=== PATIENT | male | born 1970 | race Caucasian/White ===

== ENCOUNTER 2023-05-13 15:06 | Outpatient (AMB) | payer MEDICARE, MEDICAID, SELFPAY ==
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
[2023-05-13 15:26] VITALS: BP 142/88; PULSE 83; O2SAT 97; BMI 64.7
== END 2023-05-14 15:07 | disposition home or self-care (01) ==
PROVIDERS: PCP Family Medicine; Visit Provider Family Medicine
DX: R03.0 Elevated blood-pressure reading, without diagnosis of hypertension (principal); I83.009 Varicose veins of unspecified lower extremity with ulcer of unspecified site; L97.909 Non-pressure chronic ulcer of unspecified part of unspecified lower leg with unspecified severity; E66.01 Morbid (severe) obesity due to excess calories; Z68.44 Body mass index [BMI] 60.0-69.9, adult; F32.A Depression, unspecified; F63.81 Intermittent explosive disorder; Z86.718 Personal history of other venous thrombosis and embolism; J45.909 Unspecified asthma, uncomplicated; G47.30 Sleep apnea, unspecified; G62.9 Polyneuropathy, unspecified
CPT/HCPCS: 96127; 99204

== ENCOUNTER 2023-06-30 13:41 | Outpatient (AMB) | payer MEDICARE, MEDICAID, SELFPAY ==
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
[2023-06-30 13:45] VITALS: BP 138/80; PULSE 88; RESP 14; O2SAT 98; BMI 64.2
== END 2023-06-30 15:09 | disposition home or self-care (01) ==
PROVIDERS: PCP Family Medicine; Visit Provider Family Medicine
DX: M54.9 Dorsalgia, unspecified (principal); M79.606 Pain in leg, unspecified; F11.20 Opioid dependence, uncomplicated; R60.0 Localized edema; T14.8XXA Other injury of unspecified body region, initial encounter
CPT/HCPCS: 99214

== ENCOUNTER 2024-04-25 15:02 | Outpatient (AMB) | payer MEDICARE, MEDICAID, SELFPAY ==
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
[2024-04-25 15:11] VITALS: BP 146/80; PULSE 88; BMI 67.6
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
--- OUTSIDE RECORDS SUMMARY | 2024-04-25 16:35 | XMS_ITS | Clinical Summary ---
Author Organization [address] [place] [address] [place] [id number] Phone Care Team Providers Care Physician Office Rep Name Role Phone Berta Villalba MD Primary Care Provider [phone] Allergies Active Allergy Reactions Criticality Noted Date Comments Ciprofloxacin Hcl 01/14/2012 Doxycycline Calcium 01/14/2012 Gabapentin Swelling 07/30/2023 Fever Oxcarbazepine 01/14/2012 Prednisone 01/14/2012 Fd&C Yellow #6 [place]-Prednisone Soybean Oil 01/14/2012 Medications Medication Sig Dispensed Refills Start Date End Date Status albuterol HFA (PROAIR HFA ; PROVENTIL HFA ; VENTOLIN HFA) 90 mcg/actuation inhaler Inhale 2 Puffs into the lungs every 4 hours as needed for Cough or Wheezing. 08/12/2023 Active amLODIPine (NORVASC) 5 mg tablet Take 1 tablet (5 mg total) by mouth 1 (one) time each day. 08/28/2023 Active atorvastatin (LIPITOR) 10 mg tablet Take 1 tablet (10 mg total) by mouth 1 (one) time each day. 08/28/2023 Active budesonide-formoter oL (SYMBICORT) 160-4.5 mcg/actuation inhaler Inhale 2 Puffs into the lungs 2 times daily. 09/02/2023 09/26/2024 Active clotrimazole (LOTRIMIN) 1 % cream Apply 1 g topically 2 times daily. 07/31/2023 Active DULoxetine (CYMBALTA) [address] capsule Take 1 capsule (20 mg total) by mouth 1 (one) time each day. 07/31/2023 Active FLUoxetine (PROzac) 10 mg capsule Take 1 capsule (10 mg total) by mouth 1 (one) time each day. 01/22/2024 Active FLUoxetine (PROzac) 20 mg capsule Take 1 capsule (20 mg total) by mouth 1 (one) time each day. 07/30/2023 Active fluticasone propion-salmeteroL (ADVAIR HFA) 115-21 mcg/actuation inhaler Inhale 2 Puffs into the lungs 2 times daily for 360 days. 09/02/2023 2024 Active furosemide (LASIX) 20 mg tablet Take 1 tablet (20 mg total) by mouth 1 (one) time each day. 07/31/2023 Active lamoTRIgine (LaMICtal) 100 mg tablet Take 1 tablet (100 mg total) by mouth 1 (one) time each day. 07/31/2023 Active loratadine 10 mg capsule Take 1 Capsule by mouth daily as needed (allergies). 07/31/2023 Active mometasone-formoter ol (Dulera) 100-5 mcg/actuation inhaler Inhale 2 Puffs into the lungs 2 times daily. 09/02/2023 Active omeprazole (PriLOSEC) [address] capsule Take 1 capsule (20 mg total) by mouth 1 (one) time each day. 07/31/2023 Active pregabalin (LYRICA) 200 mg capsule Take 1 capsule (200 mg total) by mouth 2 (two) times a day. Max Daily Amount: 400 mg 07/31/2023 Active oxyCODONE (ROXICODONE) 10 mg immediate release tablet Take 1 tablet (10 mg total) by mouth 2 (two) times a day. Max Daily Amount: 20 mg 10 tablet 02/25/2024 Active morphine (MSIR) 15 mg tablet Take 1 tablet (15 mg total) by mouth 2 (two) times a day. Max Daily Amount: 30 mg 20 tablet 02/25/2024 Active clonazePAM (KlonoPIN) 0.5 mg tablet Take 1 tablet (0.5 mg total) by mouth 2 (two) times a day for 14 days. Max Daily Amount: 1 mg 28 tablet 02/25/2024 Active oxyCODONE (ROXICODONE) 10 mg immediate release tablet Take 1 tablet (10 mg total) by mouth 2 (two) times a day. Max Daily Amount: 20 mg 10 tablet 02/25/2024 Active Active Problems Problem Noted Date Diagnosed Date Asthma 01/14/2012 Hyperlipidemia with target LDL less than 130 Overview (02/19/2024): IMO update Myocarditis 01/14/2012 Obesity 01/14/2012 Psychiatric disorder 01/14/2012 Encounters Date Type Department Care Team Description 02/18/2024 [facility] - [address] [place] [address] Ariana Morin MD Medication Problem (Oxycodone) from Last 3 Months Medical History Medical History Date Comments Historical Medical DX 01/14/2012 DX:Hyperli pidemia LDL goal < 130 Obesity 01/14/2012 DX:Obesity Psychiatric disorder 01/14/2012 DX:Psychiat son disorder Asthma 01/14/2012 DX:Asthma Myocarditis (CMS/HCC) 01/14/2012 DX:Myocard itis ([facility]) Social History Tobacco Use Types Packs/Day Years Used Date Smoking Tobacco: Never Smokeless Tobacco: Never Alcohol Use Standard Drinks/Week Comments Never 0 (1 standard drink = 0.6 oz pur e alcohol) Sex and Gender Information Value Date Recorded Sex Assigned at Not on file Gender Identity Not on file Sexual Orientation Not on file Job Start Date Occupation Industry Not on file Not on file Not on file Obstetrics History Last Filed Vital Signs Vital Sign Reading Time Taken Comments Blood Pressure - - Pulse 94 07/30/2023 3:55 PM EDT Temperature - - Respiratory Rate - - Oxygen Saturation - - Inhaled Oxygen Concentration - - Weight 197 kg (435 lb) 07/30/2023 3:55 PM EDT Height 175.3 cm (5' 9 ) 07/30/2023 3:55 PM EDT Body Mass Index 64.24 07/30/2023 3:55 PM EDT Plan of Treatment Health Maintenance Due Date Last Done Comments Pneumococcal Vaccine: Pediatrics (0 to 5 Years) and At-Risk Patients (6 to 64 Years) (1 of 2 - PCV) 1978 DTaP,Tdap,and Td Vaccines (1 - Tdap) 08/28/1991 Hepatitis B Vaccines (1 of 3 - 19+ 3-dose series) 08/28/1991 Zoster Vaccines (1 of 2) 2022 COVID-19 Vaccine (1 - 2023-2 5 season) 2023 Influenza Vaccine (#1) 2023 Colorectal Cancer Screening: Colonoscopy 12/29/2023 Depression Screening 12/29/2023 HIV Screening 12/29/2023 Medicare Annual Wellness Visit 12/29/2023 Social Influencers of Health Screening 12/29/2023 Cholesterol Screening (Lipid Panel) 11/24/2028 11/25/2023, 11/25/2023 Hepatitis C Screening Completed 11/25/2023 HIB Vaccines Aged Out No longer eligi [...] on patient's age to complete this topic MMR Vaccines Aged Out No longer eligi ble based on patient's age to complete this topic Meningococcal ACWY Vaccine Aged Out N o longer eligible based on patient's age to complete this topic RSV Immunization Patients Under 20 months Aged Out No longer eligible b ased on patient's age to complete this topic Varicella Vaccines Aged Out No longer eligible based on patient's age to complete this topic Procedures Procedure Name Priority Date/Time Associated Diagnosis Comments HEPATITIS C SCREENING Routine 11/25/2023 LIPID PANEL Routine 11/25/2023 from Last 3 Months or Most Recently Relevant to Health Maintenance Results * Hepatitis C Screening (11/25/2023) Pathologist [facility] Hepatitis C Screening abstracted Historical Provider MD SHRAVAN KAUFMAN E * (ABNORMAL) Lipid panel (11/25/2023) LDL/HDL Ratio 5(A) 0 - 4 Triglycerides 169(A) 0 - 150 mg/dL Cholesterol 225(A) 0 - 200 mg/dL HDL 45 40 mg/dL LDL Cholesterol 147(A) 0 - 100 mg/dL Blood Venous blood specimen / Unknown Historical Provider LAB BLOOD ORDERAB LES from Last 3 Months or Most Recently Relevant to Health Maintenance Care Teams Physician Office Rep Relationship Specialty Start Date End Date Berta Villalba MD [address] [place] [address] PCP - General 07/14/23
--- OUTSIDE RECORDS SUMMARY | 2024-04-25 16:35 | XMS_ITS | Encounter Summary ---
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
--- OUTSIDE RECORDS SUMMARY | 2024-04-25 16:35 | XMS_ITS | Encounter Summary ---
Author Organization [employer] Address [address] [place] [address] [address] [place] [address] Care Team Providers Care Roll Plugger Machine Operator Name Role Phone Shania Salazar COREEN Primary Care Provider [phone] Ariane Mendoza Primary Care Provider Unavailabl e Reason for Visit * Reason Comments Med Change Request Encounter Details Date Type Department Care Team (Late st Contact Info) Description 11/26/2022 Refill [facility] MED[facility] [address] [place] [address] Brittney Sams MD [address] [place] [address] Moderate persistent asthma, uncomplicated Social History Tobacco Use Types Packs/Day Years [...] place to sleep or slept in a senior living (including now)? 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 Can you please refuse this script as he picked Flovent up last night documented in this encounter Plan of Treatment Not on file documented as of this encounter Visit Diagnoses Diagnosis Moderate persistent asthma, uncomplicated documented in this encounter Care Teams Roll Plugger Machine Operator Relationship Specialty Start Date End Date Shania Salazar FNP [address] [place] [address] PCP - General Family Medicine 11/18/22 12/08/22 Ariane Mendoza PA [address] [place] [address] PCP - General Family Medicine 12/09/22 Phyllis Fleming CM CHW Community Health Worker Case Management 10/03/22 documented as of this encounter
--- OUTSIDE RECORDS SUMMARY | 2024-04-25 16:35 | XMS_ITS | Encounter Summary ---
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
--- OUTSIDE RECORDS SUMMARY | 2024-04-25 16:35 | XMS_ITS | Encounter Summary ---
Author Organization [employer] Address [address] [facility] 7[address] [place] [address] Care Team Providers Care Eye Specialist Name Role Phone Ariane Mendoza Primary Care Provider Unavailabl e Encounter Details Date Type Department Care Team (Late st Contact Info) Description 12/19/2022 Telephone [place] [facility] MED[facility] [address] [place] [address] Shania Salazar FNP [address] [place] [address] Social History Tobacco Use Types Packs/Day Years [...] place to sleep or slept in a half-way (including now)? 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 He states that his girlfriend who lives with him is a nurse and is taking care of his wounds daily, he is keeping his legs elevated and that he is doing ok. He reports not being able to come into the office for an appt as his bariatric wheelchair doesn't fit in our doorways. He requests a home visit at Ariane's next availability and prefers a Thursday or Thursday. He states he is fine to wait until end of dec. * Telephone Encounter - Joann Gayatri - 12/19/2022 11:01 AM EDT Patient was scheduled to be seen by Ariane Mendoza on 12/08 as home visit. He called earlier that day to report that other members of the household had flu sxs and we cancelled the home visit. I have contacted patient x 3 since then to ask him to call us to schedule a visit for wound check on leg. He has not answered the phone and I have left voicemails. I called today for the 3rd time and then left a voicemail for his emergency contact, asking her simply to have him contact me. Do you think we should consider a well visit? And if so, when? documented in this encounter Plan of Treatment Not on file documented as of this encounter Visit Diagnoses Not on filedocumented in this encounter Care Teams Eye Specialist Relationship Specialty Start Date End Date Ariane Mendoza PA PCP - General Family Medicine 12/09/22 documented as of this encounter
--- OUTSIDE RECORDS SUMMARY | 2024-04-25 16:35 | XMS_ITS | Encounter Summary ---
Author Organization [employer] Address [address] [place] [address] [address] [place] [address] Care Team Providers Care Kindergarten Teacher Name Role Phone Ariane Mendoza Primary Care Provider Unavailabl e Reason for Visit * Reason Onset Date Comments Med Refill 04/08/2024 Encounter Details Date Type Department Care Team (Late st Contact Info) Description 04/08/2024 Refill [facility] MEDICAL [address] [place] [address] Ariane Mendoza PA Personal history of other diseases of the circulatory system Social History Tobacco Use Types Packs/Day Years [...] the past 12 months, has t he [employer], gas, oil or water company threatened to [...] 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 Needs appointment for ANY further refills * Telephone Encounter - Jessy Heaton MA - 04/08/2024 12:18 PM EST A request to refill Amlodipine 5 MG was faxed in. documented in this encounter Plan of Treatment Not on file documented as of this encounter Visit Diagnoses Diagnosis Personal history of other diseases of the circulatory system documented in this encounter Care Teams Kindergarten Teacher Relationship Specialty Start Date End Date Ariane Mendoza PA PCP - General Family Medicine 12/09/22 documented as of this encounter
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
--- OUTSIDE RECORDS SUMMARY | 2024-04-25 16:35 | XMS_ITS | Encounter Summary ---
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 documented in this encounter Plan of Treatment Not on file documented as of this encounter Visit Diagnoses Diagnosis Chronic pain disorder Chronic pain syndrome documented in this encounter Care Teams Kaiawhina Kura [place] Maori Relationship Specialty Start Date End Date Ariane Mendoza PA PCP - General Family Medicine 12/09/22 documented as of this encounter
== END 2024-04-25 16:17 | disposition home or self-care (01) ==
PROVIDERS: PCP Family Medicine; Visit Provider Nurse Practitioner Family
DX: G89.4 Chronic pain syndrome (principal); E66.01 Morbid (severe) obesity due to excess calories; Z68.44 Body mass index [BMI] 60.0-69.9, adult; M54.50 Low back pain, unspecified; G89.29 Other chronic pain; M54.16 Radiculopathy, lumbar region; M51.369 Other intervertebral disc degeneration, lumbar region without mention of lumbar back pain or lower extremity pain; M47.812 Spondylosis without myelopathy or radiculopathy, cervical region; M47.817 Spondylosis without myelopathy or radiculopathy, lumbosacral region; G57.93 Unspecified mononeuropathy of bilateral lower limbs; G82.20 Paraplegia, unspecified
CPT/HCPCS: 99204; G2211

== ENCOUNTER → 2024-04-25 15:02 | Outpatient (BNVA) | payer MEDICARE, MEDICAID, SELFPAY | PROVIDERS: PCP Family Medicine; Visit Provider Nurse Practitioner Family | DX: M54.50 Low back pain, unspecified (principal); M54.16 Radiculopathy, lumbar region; M51.369 Other intervertebral disc degeneration, lumbar region without mention of lumbar back pain or lower extremity pain; M47.812 Spondylosis without myelopathy or radiculopathy, cervical region; M47.817 Spondylosis without myelopathy or radiculopathy, lumbosacral region; G57.93 Unspecified mononeuropathy of bilateral lower limbs; G82.20 Paraplegia, unspecified; G89.29 Other chronic pain; E66.01 Morbid (severe) obesity due to excess calories; Z68.44 Body mass index [BMI] 60.0-69.9, adult | CPT/HCPCS: 99202 ==